=== PATIENT | male | born 1965 | race African-American/Black ===

== ENCOUNTER 2020-12-02 10:36 | Emergency (ER) | payer BC ==
[~2020-12-02] VITALS: Ht 167.6 cm; Wt 68.2 kg
[2020-12-02 10:47] VITALS: TEMP 98.3
[2020-12-02] MEDS ORDERED: CEPHALEXIN500 M1 PO (11:48)
[2020-12-02 11:59] VITALS: BP 137/83; PULSE 85
== END 2020-12-02 11:59 | disposition home or self-care (01) ==
LOC: COL.ER 10:36
DX: S61.032A Puncture wound without foreign body of left thumb without damage to nail, initial encounter (principal); F17.210 Nicotine dependence, cigarettes, uncomplicated; Z23 Encounter for immunization; W22.8XXA Striking against or struck by other objects, initial encounter

== ENCOUNTER 2020-12-04 15:50 | Emergency (ER) | payer BC ==
[~2020-12-04] VITALS: Ht 167.6 cm; Wt 68.2 kg
[~2020-12-04 15:50] MED LIST: CEPHALEXIN500 M1 PO
[2020-12-04 16:11] VITALS: TEMP 98.2
[2020-12-04] MEDS ORDERED: PERCOCET 325 MG1 TA2 PO (19:32)
[2020-12-04 20:05] LABS: TRICYCLIC ANTIDEPRESS URINE NEGATIVE
[2020-12-04 20:37] VITALS: BP 136/90; PULSE 79
== END 2020-12-04 20:37 | disposition home or self-care (01) ==
LOC: COL.ER 15:50
PROVIDERS: Personal Emergency Response Attendant
DX: L02.512 Cutaneous abscess of left hand (principal)
CPT/HCPCS: J0696